=== PATIENT | female | born 1985 | race African-American/Black ===

== ENCOUNTER 2017-06-07 12:37 | Emergency (ER) | payer SELFPAY ==
[~2017-06-07] VITALS: Ht 157.5 cm; Wt 100.0 kg
[~2017-06-07 12:37] MED LIST: DICL75 PO; PENI500T PO
[2017-06-07 12:38] VITALS: BP 141/95; PULSE 93; RESP 18; TEMP 100; O2SAT 98
[2017-06-07] MEDS ORDERED: SODIUM CHLORIDE 0.9% FLUSH 10 ML FLUSH IVF PRN (12:45)
--- NOTE | 2017-06-07 13:42 | PD ---
HPI Chief Complaint: Cold / Flu Symptoms Time Seen by Provider: 13:41 Travel History International Travel<30 days: No Contact w/Intl Traveler<30days: No Traveled to known affect area: No History of Present Illness HPI 31-year-old female came to the emergency room with history of sore throat and body right pain since last night. She is otherwise a healthy person. No known sick contacts. Patient had a temperature of 100 in triage. Rapid strep was done prior to my arrival which was negative. She is otherwise a healthy person. [facility] Past Medical History Narrative Medical List of her past medical, surgical, social and family history is reviewed from the nursing note. Diminished Hearing: No Immunizations Current: Yes ?: Unknown LMP: 05/25/17 : 1 Para: 1 Social History Alcohol Use: No Tobacco Use: No Substance Use: No Allergies-Medications (Allergen,Severity, Reaction): Coded Allergies: No Known Allergies (Verified , 10/12/13) Comments No known drug allergies. Reported Meds & Prescriptions Reported Meds & Active Scripts Active Pen Vk (Penicillin V Potassium) 500 Mg Tab 500 Mg PO BID Diclofenac Sodium 75 Mg Tab 75 Mg PO BID Narrative Medication List of her home medications was reviewed from the nursing note. Review of Systems Except as stated in HPI: all other systems reviewed are Neg General / Constitutional: Positive: Fever HENT: Positive: Sore Throat Musculoskeletal: Positive: Myalgias Physical Exam Narrative GENERAL: Awake, alert, moderate distress SKIN: Focused skin assessment warm/dry. HEAD: Atraumatic. Normocephalic. EYES: Pupils equal and round. No scleral icterus. No injection or drainage. ENT: No nasal bleeding or discharge. Mucous membranes pink and moist. No erythema or exudates NECK: Trachea midline. No JVD. CARDIOVASCULAR: Regular rate and rhythm. No murmur appreciated. RESPIRATORY: No accessory muscle use. Clear to auscultation. Breath sounds equal bilaterally. GASTROINTESTINAL: Abdomen soft, non-tender, nondistended. Hepatic and splenic margins not palpable. MUSCULOSKELETAL: No obvious deformities. No clubbing. No cyanosis. No edema. NEUROLOGICAL: Awake and alert. No obvious cranial nerve deficits. Motor grossly within normal limits. Normal speech. PSYCHIATRIC: Appropriate mood and affect; insight and judgment normal. Data Data Last Documented VS Vital Signs Date Time Temp Pulse Resp B/P (MAP) Pulse Ox O2 Delivery O2 Flow Rate FiO2 1/5/18 16:25 76 18 108/59 (75) 98 06/07/17 12:38 100.0 Room Air Orders Orders Group A Rapid Strep Screen (06/07/17 12:44) Sodium Chloride 0.9% Flush (Ns Flush) (06/07/17 12:45) Strep Culture (Group A) (06/07/17 13:04) Influenzae A/B Antigen (06/07/17 14:06) Ibuprofen (Motrin) (06/07/17 14:15) Ed Discharge Order (06/07/17 15:29) MDM Medical Decision Making Medical Screen Exam Complete: Yes Emergency Medical Condition: Yes Medical Record Reviewed: Yes Differential Diagnosis Influenza, viral illness Narrative Course 3:28 PM influenza is negative as well. Patient will be discharged home with instructions. Procedures EKG Prior to Arrival: No Diagnosis Primary Impression: Viral illness Additional Impression: Odynophagia Referrals: Primary Care Physician Additional Instructions: Follow-up with your primary care next couple days if symptoms do not improve. Take Motrin/Tylenol/ibuprofen/Advil for body aches and fever. Return to the ER if the condition worsens. Drink lots of fluid and stay hydrated Disposition: 01 DISCHARGE HOME Condition: Stable Modesta Monique MD Jun 07, 2017 13:42
[2017-06-07] MEDS ORDERED: IBUPROFEN 800 MG TAB PO ONE (14:15)
[2017-06-07 16:25] VITALS: BP 108/59
== END 2017-06-07 16:28 | disposition home or self-care (01) ==
LOC: NEPD 12:37
DX: B34.9 Viral infection, unspecified (principal)
CPT/HCPCS: 87081; 87804; 87880; 99282